=== PATIENT | male | born 1980 | race Caucasian/White ===

== ENCOUNTER 2017-01-31 10:27 | Inpatient (IN) | payer BC, OTHER ==
[2017-01-31 12:49] VITALS: BMI 26.4
--- NOTE | 2017-01-31 13:13 | HP ---
CIWA Score - CIWA Score Nausea/Vomitin-Mild Nausea/No Vomiting Muscle Tremors: 4-Moderate,w/Arms Extend Anxiety: 1-Mildly Anxious Agitation: 1-Slight > Activity Paroxysmal Sweats: 1-Minimal Palms Moist Orientation: 0-Oriented Tacttile Disturbances: 1-Very Mild Itch/Numbness Auditory Disturbances: 2-Mild Harshness/Frighten Visual Disturbances: 2-Mild Sensitivity Headache: 2-Mild CIWA-Ar Total Score: 15 Admission ROS S - HPI Chief Complaint: I get too shaky, I can't stop drinking, I need help. Allergies/Adverse Reactions: Allergies Allergy/AdvReac Type Severity Reaction Status Date / Time No Known Allergies Allergy Verified 01/31/17 13:00 History of Present Illness: 36 yo gentleman here for detox from alcohol - comes from [facility] ED where he went last night when the tremors got too bad when he tried to stop drinking on his own - given librium and referred to detox. History of one seizure. History of gastric bypass and is aware he began heavy drinking after that - weight loss of about 200 lbs. Also with history of psoriasis - stable on stelaris injections but is 'overdue' for treatment and having some itching. Longest time sober three years. Exam Limitations: Clinical Condition - Ebola screening Have you traveled outside of the country in the last 21 days: No Have you had contact with anyone from an Ebola affected area: No Have you been sick,other than usual withdrawal symptoms: No Do you have a fever: No - Review of Systems Constitutional: Loss of Appetite, Malaise, Changes in sleep EENT: reports: Blurred Vision Respiratory: reports: No Symptoms reported Cardiac: reports: No Symptoms Reported GI: reports: Poor Appetite, Indigestion : reports: Frequency Musculoskeletal: reports: No Symptoms Reported Integumentary: reports: Rash, Other (psoriatic lesion arms, legs, trunk) Neuro: reports: Headache, Tremors Endocrine: reports: No Symptoms Reported Hematology: reports: No Symptoms Reported Psychiatric: reports: Judgement Intact, Mood/Affect Appropiate, Anxious Other Systems: Reviewed and Negative Patient History - Patient Medical History Hx Anemia: No Hx Asthma: No Hx Chronic Obstructive Pulmonary Disease (COPD): No Hx Cancer: No Hx Cardiac Disorders: No Hx Congestive Heart Failure: No Hx Hypertension: No Hx Hypercholesterolemia: No Hx Pacemaker: No HX Cerebrovascular Accident: No Hx Seizures: Yes (age 29 etoh related) Hx Dementia: No Hx Diabetes: No Hx Gastrointestinal Disorders: No Hx Liver Disease: No Hx Genitourinary Disorders: No Hx Sexually Transmitted Disorders: No Hx Renal Disease (ESRD): No Hx Thyroid Disease: No Hx Human Immunodeficiency Virus (HIV): No Hx Hepatitis C: No Hx Depression: (anxiety) Hx Suicide Attempt: No Hx Bipolar Disorder: No Hx Schizophrenia: No - Patient Surgical History Past Surgical History: Yes Hx Abdominal Surgery: Yes (gastric bypass 2003 - wt loss 200lbs) - PPD History Previous Implant?: Yes Documented Results: Negative w/o proof PPD to be Administered?: Yes - Reproductive History Patient is a Female of Child Bearing Age (11 -55 yrs old): No (male) - Smoking Cessation Smoking history: Current every day smoker Have you smoked in the past 12 months: Yes Aproximately how many cigarettes per day: 40 Initiated information on smoking cessation: Yes 'Breaking Loose' booklet given: 01/31/17 - Substance & Tx. History Hx Alcohol Use: Yes Hx Substance Use: No Substance Use Type: Alcohol Hx Substance Use Treatment: Yes (none) - Substances Abused Alcohol Route: Oral Frequency: Daily Amount used: 18 twelve oz beers Age of first use: 12 Date of Last Use: 01/30/17 Family Disease History - Family Disease History Family Disease History: Heart Disease: Mother (alive, htn, RA, COPD, drug abuse) , Respiratory: Mother, Other: Father (alive, etoh), Mother, Brother (one alive) , Sister (one alive) Admission Physical Exam S - Vital Signs Vital Signs: Vital Signs - 24 hr 01/31/17 12:46 Temperature 96.8 F L Pulse Rate 72 Respiratory 20 Rate Blood Pressure 143/94 - Physical General Appearance: Yes: Nourished, Appropriately Dressed, Moderate Distress, Tremorous, Anxious HEENTM: Yes: Hearing grossly Normal, Normal ENT Inspection, Normocephalic, Normal Voice, Pharynx Normal Respiratory: Yes: No Respiratory Distress, Rhonchi Breast: Yes: Breast Exam Deferred Cardiology: Yes: Regular Rhythm, Regular Rate Abdominal: Yes: Soft Genitourinary: Yes: Frequency Back: Yes: Normal Inspection Musculoskeletal: Yes: full range of Motion, Gait Steady Extremities: Yes: Normal Inspection, Normal Range of Motion, Non-Tender Neurological: Yes: Fully Oriented, Alert, Normal Mood/Affect, Normal Response Integumentary: Yes: Normal Color, Rash, Other (scattered rash arms, legs, trunk , groin) Lymphatic: Yes: Within Normal Limits - Diagnostic (1) Alcohol dependence with uncomplicated withdrawal Current Visit: Yes Status: Chronic (2) GERD (gastroesophageal reflux disease) Current Visit: Yes Status: Chronic Qualifiers: Esophagitis presence: esophagitis presence not specified Qualified Code(s): K21.9 - Gastro-esophageal reflux disease without esophagitis (3) History of bariatric surgery Current Visit: Yes Status: Chronic (4) Nicotine dependence Current Visit: Yes Status: Chronic Qualifiers: Nicotine product type: cigarettes Substance use status: uncomplicated Qualified Code(s): F17.210 - Nicotine dependence, cigarettes, uncomplicated (5) Psoriasis Current Visit: Yes Status: Chronic Comment: on stelaris injection quarterly from his doctor Cleared for Admission [facility] - Detox or Rehab [facility] Level of Care: Medically Managed Detox Regimen/Protocol: Librium S Breath Alcohol Content Breath Alcohol Content: 0 Urine Drug Screen - Results Urine Drug Screen Results: BZO-Benzodiazepines
[2017-01-31] MEDS ORDERED: ACETAMINOPHEN 325 MG TABLET (FP) PO PRN (13:25)
[2017-01-31] MEDS ORDERED: IBUPROFEN 400 MG TABLET (FP) PO PRN (13:25)
[2017-01-31] MEDS ORDERED: MENTHOL/PHENOL 1 EACH UD MM PRN (13:25)
[2017-01-31] MEDS ORDERED: LOPERAMIDE HCL 2 MG CAPSULE PO PRN (13:25)
[2017-01-31] MEDS ORDERED: MAG HYDROX/AL HYDROX/SIMETH 30 ML UNIT-DOSE CUP PO PRN (13:25)
[2017-01-31] MEDS ORDERED: MAGNESIUM CITRATE 300 ML BOTTLE PO PRN (13:25)
[2017-01-31] MEDS ORDERED: guaiFENesin/D-METHORPHAN HB 10 ML UNIT-DOSE CUPS PO PRN (13:25)
[2017-01-31] MEDS ORDERED: NICOTINE POLACRILEX 4 MG GUM BUC PRN (13:25)
[2017-01-31] MEDS ORDERED: MAGNESIUM HYDROX 2400MG/30ML ORAL SUSPENSION 30 ML CUP PO PRN (13:25)
[2017-01-31] MEDS ORDERED: P-EPHED 60MG/TRIPROLIDI 2.5MG TABLET PO PRN (13:25)
[2017-01-31] MEDS ORDERED: HYDROCORTISONE 1% TOPICAL OINT 30 GM TUBE TP PRN (13:58)
[2017-01-31] MEDS ORDERED: COLLOIDAL OATMEAL 1 BAR EACH TP PRN (13:58)
[2017-01-31] MEDS ORDERED: chlordiazePOXIDE HCL 25 MG CAPSULE PO ONE (14:00)
[2017-01-31] MEDS: NICOTINE 21 MG/24 HOURS TOPICAL PATCH TD SCH (15:42)
--- NOTE | 2017-01-31 16:57 | CONSULT ---
[facility] Psychiatric Consult - Data Date of interview: 01/31/17 Admission source: [facility] Identifying data: First admission to [facility] for this 36 y/o male seeking detox treatment on for alcohol dependence.Patient is without children of his own (has stepchildren),domiciled,currently unemployed and supported by . Substance Abuse History: History of alcohol abuse since age 12.Consumes a total of 24 X 12 oz of beer on a daily basis.Last use on 01/30/17.Mr Ceron admits to smoking 2 packs of cigarettes/day. Medical History: Psoriasis,antecedent of alcohol withdrawal seizures,GERD and a history of bastric bypass in 2003 (lost 200 lbs). Psychiatric History: Patient denies history of psychiatric hospitalizations.He indicates that his primary care doctor has prescribed him " something for depression ".Name of medication not recalled.Mr Ceron denies affiliation with psychiatric OPD care providers.He gets seroquel (undisclosed dose) from his physician for insomnia.Patient denies history of suicide attempts. Physical/Sexual Abuse/Trauma History: Patient denies history of abuse or domestic violence. Additional Comment: Urine Drug Screen Results: positive for benzodiazepines. Mental Status Exam - Mental Status Exam Alert and Oriented to: Time, Place, Person Cognitive Function: Good Patient Appearance: Well Groomed Mood: Nervous, Withdrawn, Apprehensive Affect: Mood Congruent, Constricted Patient Behavior: Fatigued, Cooperative Speech Pattern: Clear, Appropriate Voice Loudness: Normal Thought Process: Goal Oriented Thought Disorder: Not Present Hallucinations: Denies Suicidal Ideation: Denies Homicidal Ideation: Denies Insight/Judgement: Poor Sleep: Poorly, Difficulty falling asleep Appetite: Fair Muscle strength/Tone: Normal Gait/Station: Normal Psychiatric Findings - Problem List ([place] 1, 2,3) (1) Alcohol dependence with uncomplicated withdrawal Current Visit: Yes Status: Chronic (2) Nicotine dependence Current Visit: Yes Status: Acute Qualifiers: Nicotine product type: cigarettes Substance use status: uncomplicated Qualified Code(s): F17.210 - Nicotine dependence, cigarettes, uncomplicated (3) Alcohol-induced mood disorder Current Visit: Yes Status: Acute (4) GERD (gastroesophageal reflux disease) Current Visit: Yes Status: Chronic Qualifiers: Esophagitis presence: esophagitis presence not specified Qualified Code(s): K21.9 - Gastro-esophageal reflux disease without esophagitis (5) History of bariatric surgery Current Visit: Yes Status: Chronic (6) Psoriasis Current Visit: Yes Status: Chronic Comment: on stelaris injection quarterly from his doctor (7) Insomnia Current Visit: Yes Status: Acute - Initial Treatment Plan Initial Treatment Plan: Psychoeducation and support provided in session.Recent pharmacy claims are revisited.S report is appreciated.Detoxification is in progress.Patient has expressed interest in resuming seroquel.Will restart at the dose of 50 mg po hs (for the purpose of sleep amelioration) in view of self- report of favorable response in the past.Side effects/benefits discussed with patient.Informed of risk of metabolic syndrome,oversedation/falls,abnormal involuntary movements.Mr Ceron consents (verbally) to follow this plan of care.Seizures precautions.Observation.
[2017-01-31] MEDS: chlordiazePOXIDE HCL 25 MG CAPSULE PO SCH ×2 (17:13→22:01)
[2017-01-31 18:19] LABS: URINE APPEARANCE CLEAR; URINE BILIRUBIN NEGATIVE (NEGATIVE); URINE BLOOD NEGATIVE (NEGATIVE); URINE COLOR YELLOW; URINE GLUCOSE (UA) NEGATIVE (NEGATIVE); URINE KETONE TRACE (NEGATIVE); URINE LEUK ESTERASE NEGATIVE (NEGATIVE); URINE NITRITE NEGATIVE (NEGATIVE); URINE PROTEIN NEGATIVE (NEGATIVE); URINE UROBILINOGEN 4.0 E.U/dl mg/dL (0.2-1.0)
[2017-01-31] MEDS: diphenhydrAMINE HCL 50 MG CAPSULE PO PRN (21:54)
[2017-01-31] MEDS: QUEtiapine FUMARATE 50 MG TABLET PO SCH (21:54)
[2017-01-31] MEDS: THIAMINE HCL 100 MG TABLET (FP) PO SCH (21:57)
[2017-02-01] MEDS: chlordiazePOXIDE HCL 25 MG CAPSULE PO SCH ×4 (06:14→22:46)
--- NOTE | 2017-02-01 06:51 | PN ---
S CIWA - CIWA Score Nausea/Vomitin Muscle Tremors: 3 Anxiety: 3 Agitation: 3 Paroxysmal Sweats: 2 Orientation: 0-Oriented Tacttile Disturbances: 1-Very Mild Itch/Numbness Auditory Disturbances: 1-Very Mild Visual Disturbances: 1-Very Mild Sensitivity Headache: 2-Mild CIWA-Ar Total Score: 18 S Progress Note (SOAP) Subjective: alert,irritable,anxious,interrupted sleep,tremor Objective: 02/01/17 06:50 Vital Signs Temperature 96.6 F L 02/01/17 06:00 Pulse Rate 74 02/01/17 06:00 Respiratory Rate 18 02/01/17 06:00 Blood Pressure 106/79 02/01/17 06:00 O2 Sat by Pulse Oximetry (%) ekg nsr,normal ecg 02/01/17 06:51 Laboratory Last Values Urine Color Yellow 01/31/17 15:46 Urine Appearance Clear 01/31/17 15:46 Urine pH 7.0 (5.0-8.0) 01/31/17 15:46 Ur Specific [place] 1.015 (1.005-1.025) 01/31/17 15:46 Urine Protein Negative (NEGATIVE) 01/31/17 15:46 Urine Glucose (UA) Negative (NEGATIVE) 01/31/17 15:46 Urine Ketones Trace (NEGATIVE) H 01/31/17 15:46 Urine Blood Negative (NEGATIVE) 01/31/17 15:46 Urine Nitrite Negative (NEGATIVE) 01/31/17 15:46 Urine Bilirubin Negative (NEGATIVE) 01/31/17 15:46 Urine Urobilinogen 4.0 e.u/dl mg/dL (0.2-1.0) 01/31/17 15:46 Ur Leukocyte Esterase Negative (NEGATIVE) 01/31/17 15:46 labs pending Assessment: 02/01/17 06:51 withdrawal symptom Plan: continue detox
[2017-02-01 10:04] LABS: MCH 25.1 pg (25.7-33.7); MCHC 31.3 g/dl (32.0-35.9); MEAN CELL VOLUME 80.1 fl (80-96); MEAN PLT VOLUME 9.5 fl (7.5-11.1); PLATELET COUNT 220 K/MM3 (134-434); RDW 22.4 % (11.9-15.9); WHITE BLOOD COUNT 13.2 K/mm3 (4.0-10.0)
[2017-02-01] MEDS: PRENATAL VITAMINS W/ FOLIC ACID TABLET (FP) PO SCH (10:05)
[2017-02-01] MEDS: NICOTINE 21 MG/24 HOURS TOPICAL PATCH TD SCH (10:06)
[2017-02-01] MEDS: PANTOPRAZOLE 40 MG TABLET (FP) PO SCH (10:08)
[2017-02-01 10:13] LABS: ALBUMIN 3.4 g/dl (3.4-5.0); ANION GAP 11 (8-16); CALCIUM 9.1 mg/dL (8.5-10.1); CO2 25 mmol/L (21-32); CREATININE 0.9 mg/dL (0.7-1.3); GLUCOSE,RANDOM 174 mg/dL (74-106); SGOT/AST 14 U/L (15-37); SGPT/ALT 24 U/L (12-78)
[2017-02-01 10:14] LABS: ALK PHOS 79 U/L (45-117); BILIRUBIN,TOTAL 0.5 mg/dL (0.2-1.0); TOT PROT 6.4 g/dl (6.4-8.2)
--- NOTE | 2017-02-01 13:28 | EKG ---
Test Reason : Blood Pressure : / mmHG Vent. Rate : 085 BPM Atrial Rate : 085 BPM P-R Int : 134 ms QRS Dur : 088 ms QT Int : 366 ms P-R-T Axes : 065 029 041 degrees QTc Int : 435 ms NORMAL SINUS RHYTHM NORMAL ECG NO PREVIOUS ECGS AVAILABLE Confirmed by INGRID SANABRIA, GLENN ([id number]) on 02/01/2017 1:28:10 PM Referred By: Confirmed By:GLENN QUINTERO MD
[2017-02-01] MEDS: hydrOXYzine PAMOATE 50 MG CAPSULE (FP) PO PRN ×2 (15:04→19:48)
[2017-02-01] MEDS: chlordiazePOXIDE HCL 25 MG CAPSULE PO PRN (19:48)
[2017-02-01] MEDS: QUEtiapine FUMARATE 50 MG TABLET PO SCH (22:45)
[2017-02-01] MEDS: diphenhydrAMINE HCL 50 MG CAPSULE PO PRN (22:45)
[2017-02-01] MEDS: THIAMINE HCL 100 MG TABLET (FP) PO SCH (22:47)
[2017-02-02] MEDS: diphenhydrAMINE HCL 50 MG CAPSULE PO PRN (00:24)
[2017-02-02] MEDS: chlordiazePOXIDE HCL 25 MG CAPSULE PO PRN ×2 (00:24→18:12)
[2017-02-02] MEDS: chlordiazePOXIDE HCL 25 MG CAPSULE PO SCH ×2 (05:33→10:18)
--- NOTE | 2017-02-02 08:36 | PN ---
S CIWA - CIWA Score Nausea/Vomitin Muscle Tremors: 3 Anxiety: 3 Agitation: 2 Paroxysmal Sweats: 1-Minimal Palms Moist Orientation: 0-Oriented Tacttile Disturbances: 1-Very Mild Itch/Numbness Auditory Disturbances: 1-Very Mild Visual Disturbances: 1-Very Mild Sensitivity Headache: 2-Mild CIWA-Ar Total Score: 17 BHS Progress Note (SOAP) Subjective: ALERT,IRRITABLE,ANXIOUS,INTERRUPTED SLEEP,TREMOR Objective: 02/02/17 08:31 Vital Signs Temperature 98.3 F 02/02/17 06:02 Pulse Rate 61 02/02/17 06:02 Respiratory Rate 16 02/02/17 06:02 Blood Pressure 101/61 02/02/17 06:02 O2 Sat by Pulse Oximetry (%) Laboratory Last Values WBC 13.2 K/mm3 (4.0-10.0) H 02/01/17 07:15 RBC 4.92 M/mm3 (4.00-5.60) 02/01/17 07:15 Hgb 12.3 GM/dL (11.7-16.9) 02/01/17 07:15 Hct 39.4 % (35.4-49) 02/01/17 07:15 MCV 80.1 fl (80-96) 02/01/17 07:15 MCH 25.1 pg (25.7-33.7) L 02/01/17 07:15 MCHC 31.3 g/dl (32.0-35.9) L 02/01/17 07:15 RDW 22.4 % (11.9-15.9) H 02/01/17 07:15 Plt Count 220 K/MM3 (134-434) 02/01/17 07:15 MPV 9.5 fl (7.5-11.1) 02/01/17 07:15 Sodium 141 mmol/L (136-145) 02/01/17 07:15 Potassium 3.6 mmol/L (3.5-5.1) 02/01/17 07:15 Chloride 105 mmol/L (98-107) 02/01/17 07:15 Carbon Dioxide 25 mmol/L (21-32) 02/01/17 07:15 Anion Gap 11 (8-16) 02/01/17 07:15 BUN 7 mg/dL (7-18) 02/01/17 07:15 Creatinine 0.9 mg/dL (0.7-1.3) 02/01/17 07:15 Creat Clearance w eGFR > 60 (>60) 02/01/17 07:15 Random Glucose 174 mg/dL (74-106) H 02/01/17 07:15 Calcium 9.1 mg/dL (8.5-10.1) 02/01/17 07:15 Total Bilirubin 0.5 mg/dL (0.2-1.0) 02/01/17 07:15 AST 14 U/L (15-37) L 02/01/17 07:15 ALT 24 U/L (12-78) 02/01/17 07:15 Alkaline Phosphatase 79 U/L (45-117) 02/01/17 07:15 Total Protein 6.4 g/dl (6.4-8.2) 02/01/17 07:15 Albumin 3.4 g/dl (3.4-5.0) 02/01/17 07:15 Urine Color Yellow 01/31/17 15:46 Urine Appearance Clear 01/31/17 15:46 Urine pH 7.0 (5.0-8.0) 01/31/17 15:46 Ur Specific [place] 1.015 (1.005-1.025) 01/31/17 15:46 Urine Protein Negative (NEGATIVE) 01/31/17 15:46 Urine Glucose (UA) Negative (NEGATIVE) 01/31/17 15:46 Urine Ketones Trace (NEGATIVE) H 01/31/17 15:46 Urine Blood Negative (NEGATIVE) 01/31/17 15:46 Urine Nitrite Negative (NEGATIVE) 01/31/17 15:46 Urine Bilirubin Negative (NEGATIVE) 01/31/17 15:46 Urine Urobilinogen 4.0 e.u/dl mg/dL (0.2-1.0) 01/31/17 15:46 Ur Leukocyte Esterase Negative (NEGATIVE) 01/31/17 15:46 RPR Titer Nonreactive (NONREACTIVE) 02/01/17 07:15 Assessment: 02/02/17 08:32 WITHDRAWAL SYMPTOM Plan: CONTINUE DETOX,ENCOURAGE ORAL FLUID,WBC 13,200,ENCOURAGE ORAL FLUID,REPEAT CBC TODAY,INITIAL GLUCOSE 174, FASTING BLOOD GLUCOSE ORDERED TODAY
[2017-02-02 10:03] LABS: MCH 25.2 pg (25.7-33.7); MCHC 31.8 g/dl (32.0-35.9); MEAN CELL VOLUME 79.2 fl (80-96); PLATELET COUNT 201 K/MM3 (134-434); RDW 22.9 % (11.9-15.9); WHITE BLOOD COUNT 5.7 K/mm3 (4.0-10.0)
[2017-02-02] MEDS: PANTOPRAZOLE 40 MG TABLET (FP) PO SCH (10:18)
[2017-02-02] MEDS: NICOTINE 21 MG/24 HOURS TOPICAL PATCH TD SCH (10:18)
[2017-02-02] MEDS: PRENATAL VITAMINS W/ FOLIC ACID TABLET (FP) PO SCH (10:18)
[2017-02-02 12:44] LABS: ANISOCYTOSIS 2+; MICROCYTOSIS 1+
[2017-02-02] MEDS: chlordiazePOXIDE 5 MG CAPSULE PO SCH ×2 (17:47→22:10)
[2017-02-02] MEDS: hydrOXYzine PAMOATE 50 MG CAPSULE (FP) PO PRN (19:10)
[2017-02-02] MEDS: QUEtiapine FUMARATE 50 MG TABLET PO SCH (22:10)
[2017-02-02] MEDS: THIAMINE HCL 100 MG TABLET (FP) PO SCH (22:10)
[2017-02-03] MEDS: chlordiazePOXIDE 5 MG CAPSULE PO SCH ×2 (05:30→10:09)
--- NOTE | 2017-02-03 08:33 | PN ---
S Progress Note (SOAP) Subjective: ALERT,IRRITABLE,ANXIOUS,INTERRUPTED SLEEP, Objective: 02/03/17 08:31 Vital Signs Temperature 97.5 F L 02/03/17 06:14 Pulse Rate 64 02/03/17 06:14 Respiratory Rate 16 02/03/17 06:14 Blood Pressure 112/72 02/03/17 06:14 O2 Sat by Pulse Oximetry (%) Assessment: 02/03/17 08:31 WITHDRAWAL SYMPTOM Laboratory Results - last 24 hr 02/02/17 02/02/17 07:15 07:15 WBC 5.7 D RBC 4.56 Hgb 11.5 L Hct 36.1 MCV 79.2 L MCH 25.2 L MCHC 31.8 L RDW 22.9 H Plt Count 201 MPV 9.0 Anisocytosis 2+ Microcytosis 1+ Fasting Glucose 81 Plan: CONTINUE DETOX,PATIENT TAKE IRON AT HOME WILL GIVE FERROUS SULFATE 325 MGS PO DAILY
[2017-02-03] MEDS ORDERED: FERROUS SO4 325 MG TABLET (FP) PO SCH (10:00)
[2017-02-03] MEDS: NICOTINE 21 MG/24 HOURS TOPICAL PATCH TD SCH (10:09)
[2017-02-03] MEDS: PRENATAL VITAMINS W/ FOLIC ACID TABLET (FP) PO SCH (10:09)
[2017-02-03] MEDS: PANTOPRAZOLE 40 MG TABLET (FP) PO SCH (10:58)
[2017-02-03] MEDS: hydrOXYzine PAMOATE 50 MG CAPSULE (FP) PO PRN (13:51)
[2017-02-03] MEDS: chlordiazePOXIDE HCL 10 MG CAPSULE PO SCH ×2 (17:36→22:23)
[2017-02-03] MEDS: QUEtiapine FUMARATE 50 MG TABLET PO SCH (22:23)
[2017-02-03] MEDS: THIAMINE HCL 100 MG TABLET (FP) PO SCH (22:23)
[2017-02-04] MEDS: chlordiazePOXIDE HCL 10 MG CAPSULE PO SCH (05:59)
[2017-02-04 06:35] VITALS: BP 103/65; PULSE 59; TEMP 98
--- NOTE | 2017-02-04 09:36 | DS ---
[facility] Detox Discharge Summary Admission Date: 01/31/17 Discharge Date: 02/04/17 - History Present History: Alcohol Dependence - Physical Exam Results Vital Signs: Vital Signs Temperature 98 F 02/04/17 06:34 Pulse Rate 59 L 02/04/17 06:34 Respiratory Rate 18 02/04/17 06:34 Blood Pressure 103/65 02/04/17 06:34 O2 Sat by Pulse Oximetry (%) - Treatment Hospital Course: Detox Protocol Followed, Detoxed Safely, Responded well, Discharged Condition Good - Medication Discharge Medications: Ambulatory Orders Hydrocortisone 1% Ointment [Hytone 1% Ointment -] 1 applic TP TID PRN 01/31/17 Pantoprazole Sodium [Protonix -] 40 mg PO DAILY 01/31/17 Ustekinumab [Stelara] 90 mg SQ ASDIR 01/31/17 - Diagnosis (1) Alcohol-induced mood disorder Status: Chronic (2) Nicotine dependence Status: Chronic Qualifiers: Nicotine product type: cigarettes Substance use status: uncomplicated Qualified Code(s): F17.210 - Nicotine dependence, cigarettes, uncomplicated (3) Alcohol dependence with uncomplicated withdrawal Status: Chronic (4) GERD (gastroesophageal reflux disease) Status: Chronic Qualifiers: Esophagitis presence: esophagitis presence not specified Qualified Code(s): K21.9 - Gastro-esophageal reflux disease without esophagitis (5) Psoriasis Status: Chronic - AMA Did Patient Leave Against Medical Advice: No
== END 2017-02-04 07:15 | disposition home or self-care (01) | DRG 775 ==
LOC: YASAS 10:27 → Y6N 13:54
PROVIDERS: ADMIT Internal Medicine; ATTEND Internal Medicine
PROC: HZ2ZZZZ Detoxification Services for Substance Abuse Treatment (ICD-10-PCS; principal; 2017-02-04)
DX: F10.230 Alcohol dependence with withdrawal, uncomplicated (principal); F10.24 Alcohol dependence with alcohol-induced mood disorder; F17.210 Nicotine dependence, cigarettes, uncomplicated; G47.00 Insomnia, unspecified; L40.9 Psoriasis, unspecified; K21.9 Gastro-esophageal reflux disease without esophagitis; Z98.84 Bariatric surgery status
CPT/HCPCS: 36415; 80053; 81003; 82947; 85027; 86593; 93005; 93010